=== PATIENT | female | born 1995 | race Caucasian/White ===

== ENCOUNTER 2017-01-25 23:22 | Emergency (ER) | payer OTHER ==
[~2017-01-25] VITALS: Ht 162.6 cm; Wt 80.0 kg
[2017-01-25] MEDS ORDERED: BIRTH CONTROL PO (23:38)
[2017-01-26] MEDS ORDERED: AMOX500C PO (02:12)
[2017-01-26 02:18] VITALS: BP 120/66
--- NOTE | 2017-01-26 08:48 | REP ---
Chest two views HISTORY: Shortness of breath Comparison: None The lungs are clear. The heart is normal in size. The pulmonary vasculature is normal in appearance. The bony structure is intact. IMPRESSION: No acute disease. Signed by Shawn Rosen MD 01/26/2017 08:40 A
== END 2017-01-26 02:22 | disposition home or self-care (01) ==
LOC: M ED 23:22
DX: H66.93 Otitis media, unspecified, bilateral (principal); Z90.89 Acquired absence of other organs; Z79.3 Long term (current) use of hormonal contraceptives; Z88.2 Allergy status to sulfonamides